=== PATIENT | female | born 1985 | race Caucasian/White ===

== ENCOUNTER 2017-06-05 23:26 | Emergency (ER) | payer SELFPAY ==
--- NOTE | ~2017-06-05 | ER ---
PATIENT'S NAME: MARIYA NEVAREZ [facility] AGE: 32 Y [address] ROOM: [place] [address] LOCATION: [facility] ADMIT DATE: 06/05/2017 ER/Outpatient Report DISCHARGE DATE: 06/06/2017 FAMILY PHYSICIAN: Taina Garcia MD ATTENDING PHYSICIAN: Lesley Palmer TIME OF ARRIVAL: 2326. TIME OF EVALUATION: 234. CHIEF COMPLAINT: Abdominal pain. HISTORY OF PRESENT ILLNESS: The patient is a 32-year-old female, who presents to the emergency department today with chief complaint of abdominal pain. She reports this started about an hour half prior to arrival. It is sharp. It is currently 3/10 in severity. It is in the right lower quadrant. She reports that it began during intercourse. Does have some nausea. No vomiting. No diarrhea. No fevers or chills. No urinary frequency, urgency, or painful urination. PAST MEDICAL HISTORY: Ovarian cyst. PAST SURGICAL HISTORY: Cholecystectomy. Last menstrual period 05/15/2017. SOCIAL HISTORY: The patient denies any tobacco, alcohol, or illicit drug use. ALLERGIES: NO KNOWN DRUG ALLERGIES. MEDICATIONS: None. REVIEW OF SYSTEMS: All systems are reviewed by myself and are negative with the exception of those discussed in HPI and past medical history. PHYSICAL EXAMINATION: VITAL SIGNS: Weight 51 kg. Blood pressure 121/83, pulse 84, respiratory rate 18, temperature 98.6, oxygen saturation 99% on room air. PATIENT'S NAME: MARIYA NEVAREZ [facility] AGE: 32 Y [address] ROOM: [place] [address] LOCATION: [facility] ADMIT DATE: 06/05/2017 ER/Outpatient Report DISCHARGE DATE: 06/06/2017 FAMILY PHYSICIAN: Taina Garcia MD ATTENDING PHYSICIAN: Lesley Palmer GENERAL: The patient is a 32-year-old female, appears of stated age, in mild acute distress, well-developed, and well-nourished. HEENT: Normocephalic, atraumatic. Pupils are equal, round, and reactive to light and accommodating. Oropharynx is clear. NECK: Supple. There is no nuchal rigidity. CARDIOVASCULAR: Regular rate and rhythm. No murmurs, rubs, or gallops. LUNGS: Clear to auscultation bilaterally. No wheezes, rales, or rhonchi. ABDOMEN: Soft. She does have right lower quadrant abdominal tenderness to palpation. There is no rebound, rigidity, or guarding. Positive bowel sounds. MUSCULOSKELETAL: The patient moves all 4 extremities. SKIN: Warm and dry. No rashes or lesions noted. LABORATORY DATA AND X-RAYS: CBC is normal. CMP is unremarkable. LFTs are normal. Urinalysis is negative. Urine hCG is negative. CT scan of the abdomen and pelvis obtained, does show a 4 cm right ovarian cyst that does appear to be partially rupture. There is moderate amount of free fluid in the pelvis. The appendix is not visualized. There is a large amount of colonic stool burden noted. IMPRESSION: 1. Acute 4 cm right ovarian cyst with rupture. 2. Large colonic stool. 3. Initial visit. EMERGENCY DEPARTMENT COURSE: The patient brought back to the examination room. Seen and evaluated by myself. IV is established. Laboratory analysis and imaging are obtained as described above. The patient is given 50 mg of Toradol IV as well as 4 mg of Zofran IV. This has resulted in significant improvement in the patient's symptoms. Her abdominal exam is repeated. She continues to have some mild right lower quadrant tenderness to palpation. I have discussed results with the patient. I have recommended she follows up with [facility] in 2 days for re- evaluation. I have discussed return to care instructions including worsening symptoms or any other concerns to return to the emergency department as soon as possible. I have written a prescription for Bates and Naprosyn for home. The patient is agreeable without further questions. DISPOSITION: The patient is discharged home in good condition. LESLEY PALMER DO PATIENT'S NAME: MARIYA NEVAREZ [facility] AGE: 32 Y [address] ROOM: [place], [place] [address] LOCATION: [facility] ADMIT DATE: 06/05/2017 ER/Outpatient Report DISCHARGE DATE: 06/06/2017 FAMILY PHYSICIAN: Taina Garcia MD ATTENDING PHYSICIAN: Lesley Palmer/kendra /[id number] d: 06/06/17 0231 t: 06/08/17 1856, OUTPATIENT REPORT
[2017-06-06] LABS: BILIRUBIN URINE NEGATIVE (NEGATIVE); BLOOD URINE NEGATIVE /UL (NEGATIVE); COLOR URINE YELLOW (YELLOW); GLUCOSE URINE NEGATIVE (NEGATIVE); KETONE URINE NEGATIVE (NEGATIVE); LEUKOCYTES URINE NEGATIVE /UL (NEGATIVE); NITRITE URINE NEGATIVE (NEGATIVE); PROTEIN URINE NEGATIVE (NEGATIVE); TURBIDITY URINE CLEAR (CLEAR); UROBILINOGEN URINE NORMAL (NORMAL)
[2017-06-06 00:06] LABS: BASOPHIL % 0.5 %; EOSINOPHIL # 0.2 K/uL (0.0-0.5); EOSINOPHIL % 2.1 %; HEMATOCRIT 39.8 % (33.0-46.0); HEMOGLOBIN 13.9 g/dL (11.0-15.0); IMMATURE GRANULOCYTE % 0.1 %; LYMPHOCYTE # 2.7 K/uL (0.8-4.0); LYMPHOCYTE % 36.1 %; MCH 31.1 pg (27.0-34.0); MCHC 34.9 gm/dL (32.0-36.5); MONOCYTE # 0.4 K/uL (0.0-1.0); MPV 10.3 fl (9.4-12.4); NEUTROPHIL # (ANC) 4.2 K/uL (1.8-7.8); NEUTROPHIL % 56.2 %; NRBC % 0 /100WBC (0-0.00); PLATELET COUNT 170 K/uL (150-450); RBC 4.47 M/uL (3.50-5.50); RDW-CV 12.5 % (11.9-14.6); WBC 7.5 K/uL (4.0-11.0)
[2017-06-06 00:33] LABS: ALBUMIN 3.1 gm/dL (3.5-5.0); ALK PHOS 53 IU/L (33-138); ALT 17 IU/L (12-78); ANION GAP 9.6 (10.0-19.0); AST 15 IU/L (10-40); BLOOD UREA NITROGEN 10 mg/dL (6-24); CALCIUM 7.6 mg/dL (8.5-10.5); CHLORIDE 112 mMol/L (96-110); CO2 25 mMol/L (22-32); CREATININE 0.8 mg/dL (0.5-1.1); POTASSIUM 3.6 mMol/L (3.7-5.1); SODIUM 143 mMol/L (135-145); TOTAL BILIRUBIN 0.4 mg/dL (0.0-1.5); TOTAL PROTEIN 5.9 g/dL (6.0-8.4)
== END 2017-06-06 01:19 | disposition disaster alternative care site (69) ==
LOC: GMED 23:26
PROVIDERS: Emergency Medicine
DX: N83.201 Unspecified ovarian cyst, right side (principal); K63.89 Other specified diseases of intestine; Z90.49 Acquired absence of other specified parts of digestive tract
CPT/HCPCS: J1885; J2405; J7030; Q9967